=== PATIENT | female | born 1975 | race Two or more races ===

== ENCOUNTER → 2018-10-02 | Outpatient (CLI) | payer OTHER ==
[~2018-10-02] MED LIST: GADOTERATE 7.5 MMOL/15ML VIAL. IVP ONE
--- NOTE | 2018-10-02 11:17 | RAD ---
MRI Brain without contrast History: Worsening headaches, history of craniotomy as a child due to accident, epilepsy Technique: Multiplanar, multisequential noncontrast MR imaging was performed of the brain. Comparison: None Findings: There is some motion degradation. There has been left temporal craniotomy. There is also left frontal kimberly hole. There is focus of thin extra-axial fluid signal intensity associated with left temporal craniotomy site about 0.2 cm transverse by 1.3 cm AP, no mass effect. There is underlying deformity of the left temporal cortex with associated focus of cystic change about 0.8 cm AP by 0.5 cm transverse. This is not associated with significant edema. There is also focus of mild encephalomalacia with cortical involvement of the left frontal lobe. There is no evidence of recent infarct or cytotoxic edema. The ventricles, sulci, and cisterns are within normal limits in size and configuration. There is no significant midline shift. There is approximate 2 cm in length area of thinning of the posterior body of corpus callosum. There is very mild T2 and FLAIR hyperintense signal of the periventricular white matter bilaterally, degree which could be seen in asymptomatic individuals. There is preservation of the major intracranial flow-voids at the skull base. The mastoid air cells are aerated. The cerebellar tonsils are normal in location. There is no significant abnormality of the pineal gland or pituitary gland. There is patchy mild bilateral ethmoid air cell mucosal thickening, also small probable 0.3 cm complex mucous retention cyst left frontal sinus. There is preserved marrow signal of the clivus. Impression: 1. There has been left temporal craniotomy. There is some underlying deformity of the left temporal cortex, focus of associated cystic change likely cystic encephalomalacia rather than mass given history of trauma in this region area There is broad focus of thinning of the posterior body of corpus callosum, could be on a developmental basis or due to sequela of previous infarct. There is a small focus of encephalomalacia with cortical involvement of the left frontal lobe also likely due to old trauma. Electronically signed by: Wali Spears MD (10/02/2018 11:14 AM) [id number]
== END | disposition home or self-care (01) ==
LOC: MRI 09:35
PROVIDERS: ATTEND Physician Assistant Medical
DX: G93.89 Other specified disorders of brain (principal); G40.909 Epilepsy, unspecified, not intractable, without status epilepticus; Z86.69 Personal history of other diseases of the nervous system and sense organs
CPT/HCPCS: 70551